=== PATIENT | male | born 1990 | race Caucasian/White ===

== ENCOUNTER 2022-02-02 17:09 | Emergency (ER) | payer OTHER ==
[~2022-02-02] VITALS: Ht 175.3 cm; Wt 99.8 kg
[2022-02-02] MEDS ORDERED: CODACE30 PO (20:04)
[2022-02-02] MEDS ORDERED: PENVK500 PO (20:04)
== END 2022-02-02 20:12 | disposition home or self-care (01) ==
LOC: ER 17:09
DX: K04.7 Periapical abscess without sinus (principal)
CPT/HCPCS: 99282